=== PATIENT | female | born 1985 | race Two or more races ===

== ENCOUNTER 2020-11-26 05:19 | Inpatient (IN) | payer OTHER ==
[~2020-11-26] VITALS: Ht 160 cm; Wt 2.3 kg
[2020-11-26] MEDS ORDERED: NIFEDIPINE ER30 M1 PO (08:32)
[2020-11-26] MEDS ORDERED: ENOXAPARIN40 MG/0.4 (08:33)
[2020-11-26] MEDS ORDERED: ATABEX OB TABL1 EACH PO (08:34)
== END 2020-11-29 13:45 | disposition home or self-care (01) | DRG 786 ==
LOC: LDR 05:19 → OB/GYN 13:11
PROVIDERS: ADMIT Specialist; ATTEND Specialist
PROC: 4A1HXFZ Monitoring of Products of Conception, Cardiac Rhythm, External Approach (ICD-10-PCS; 2020-11-26)
PROC: 10D00Z1 Extraction of Products of Conception, Low, Open Approach (ICD-10-PCS; principal; 2020-11-26 08:15)
DX: O82 Encounter for cesarean delivery without indication (principal); O98.52 Other viral diseases complicating childbirth; U07.1 COVID-19; O69.81X0 Labor and delivery complicated by cord around neck, without compression, not applicable or unspecified; Z3A.37 37 weeks gestation of pregnancy; Z37.0 Single live birth

== ENCOUNTER 2023-12-29 10:00 | Inpatient (IN) | payer OTHER ==
[~2023-12-29] VITALS: Ht 160 cm; Wt 2.7 kg
[~2023-12-29 10:00] MED LIST: ATABEX OB TABL1 EACH PO; ENOXAPARIN40 MG/0.4; NIFEDIPINE ER30 M1 PO
[2023-12-29 10:53] VITALS: BP 109/67
[2023-12-29] MEDS ORDERED: RINGERS SOLUTION,LACTATED 1,000 ML IV SCH ×2 (11:30→17:45)
[2023-12-29] MEDS ORDERED: CEFAZOLIN SODIUM 1,000 MG VIAL IV SCH (11:30)
[2023-12-29] MEDS ORDERED: OXYTOCIN 10 UNITS/ML VIAL ONE ×2 (11:41→15:11)
[2023-12-29] MEDS ORDERED: ERYTHROMYCIN BASE OPHT 1GM EACH TUBE OP ONE ×3 (11:41→18:15)
[2023-12-29 11:42] LABS: HEMATOCRIT 37.4 % (36.0-45.00); HEMOGLOBIN 12.7 g/dL (12.0-15.00); MEAN CELL VOLUME 89.6 fL (80.00-100.00); MEAN CORPUSCULAR HEMOGLOBIN 30.4 pg (27.00-32.0); PLATELET COUNT 289 K/uL (150-450); RED BLOOD COUNT 4.17 M/uL (4.00-6.00); RED CELL DISTRIBUTION WIDTH 13.8 % (11.5-14.5)
[2023-12-29] MEDS ORDERED: PEPCID AC20 MG PO (11:46)
[2023-12-29] MEDS ORDERED: CITRIC ACID/SODIUM CITRATE 30 ML BLIST.PACK PO NR (12:00)
[2023-12-29 12:05] LABS: INR < 0.93; PARTIAL THROMBOPLASTIN TIME 27.2 SECONDS (22.0-34.0)
[2023-12-29 12:07] LABS: PROTHROMBIN TIME 9.8 SECONDS (9.0-11.5)
[2023-12-29 12:21] LABS: ALBUMIN 3.1 gm/dL (3.4-5.0); BILIRUBIN TOTAL 0.33 mg/dL (0.3-1.2); CALCIUM 9.6 mg/dL (8.5-10.1); CREATININE SERUM 0.73 mg/dL (0.55-1.02); GFR 89.7; GLOBULINA 3.9 G/DL (2.4-3.5); POTASSIUM 4.26 mEq/L (3.5-5.1)
[2023-12-29 15:08] VITALS: BP 108/69
[2023-12-29] MEDS ORDERED: OXYTOCIN 1,000 ML IV ONE (17:45)
[2023-12-29] MEDS ORDERED: MORPHINE SULFATE 4 MG/ML CARTRIDGE IV PRN (17:45)
[2023-12-29] MEDS ORDERED: ONDANSETRON HCL 2 MG/ML VIAL IV SCH (18:00)
[2023-12-29] MEDS ORDERED: KETOROLAC TROMETHAMINE 30 MG VIAL IV SCH (18:00)
[2023-12-29] MEDS ORDERED: ACETAMINOPHEN 500 MG GEL..CAP PO SCH (18:00)
[2023-12-29] MEDS ORDERED: OXYTOCIN 10 UNITS/ML VIAL IV ONE (18:15)
[2023-12-29] MEDS ORDERED: MORPHINE SULFATE 4 MG/ML VIAL IV ONE ×2 (18:30→19:00)
[2023-12-29] MEDS ORDERED: KETOROLAC TROMETHAMINE 30 MG VIAL ONE (19:45)
[2023-12-29 22:04] VITALS: BP 118/73
[2023-12-30] VITALS: BP 104/73
[2023-12-30] MEDS ORDERED: GABAPENTIN 300 MG CAPSULE PO SCH (01:00)
[2023-12-30] MEDS ORDERED: SIMETHICONE 125 MG CAPSULE PO SCH (01:00)
[2023-12-30 04:30] VITALS: BP 108/68
[2023-12-30 06:54] LABS: HEMATOCRIT 33.6 % (36.0-45.00); HEMOGLOBIN 11.9 g/dL (12.0-15.00); MEAN CORPUSCULAR HEMOGLOBIN 30.8 pg (27.00-32.0); MEAN CORPUSCULAR HGB CONC 35.4 g/dl (32.0-36.0); PLATELET COUNT 240 K/uL (150-450); RED BLOOD COUNT 3.86 M/uL (4.00-6.00); RED CELL DISTRIBUTION WIDTH 13.8 % (11.5-14.5)
[2023-12-30] MEDS ORDERED: OxyCODONE HCL 5 MG TABLET (ROXICODONE) PO PRN (08:00)
[2023-12-30] MEDS ORDERED: KETOROLAC TROMETHAMINE 10 MG TABLET PO SCH (08:00)
[2023-12-30] MEDS ORDERED: DOCUSATE SODIUM 100MG CAP PO SCH (09:00)
[2023-12-30 09:12] VITALS: BP 119/76
[2023-12-30 16:41] VITALS: BP 117/74
[2023-12-30 20:15] VITALS: BP 108/70
[2023-12-31] VITALS: BP 111/72
[2023-12-31 07:58] VITALS: BP 110/73
== END 2023-12-31 13:43 | disposition home or self-care (01) | DRG 785 ==
LOC: OB/GYN 11:02 → LDR 11:02 → O/R 16:40 → OB/GYN 18:09
PROVIDERS: Obstetrics & Gynecology; ADMIT Obstetrics & Gynecology Gynecology; ATTEND Obstetrics & Gynecology Gynecology
PROC: 0UB70ZZ Excision of Bilateral Fallopian Tubes, Open Approach (ICD-10-PCS; 2023-12-29)
PROC: 4A1HXCZ Monitoring of Products of Conception, Cardiac Rate, External Approach (ICD-10-PCS; 2023-12-29)
PROC: 10D00Z1 Extraction of Products of Conception, Low, Open Approach (ICD-10-PCS; principal; 2023-12-29 11:45)
DX: O34.211 Maternal care for low transverse scar from previous cesarean delivery (principal); Z3A.38 38 weeks gestation of pregnancy; Z37.0 Single live birth; Z20.822 Contact with and (suspected) exposure to COVID-19; Z30.2 Encounter for sterilization